=== PATIENT | female | born 1970 | race Caucasian/White ===

== ENCOUNTER 2016-12-22 12:57 | Emergency (ER) | payer BC ==
[2016-12-22] MEDS ORDERED: Aspirin 81 MG Tab.Chew PO ONE (13:17)
[2016-12-22] MEDS ORDERED: Sodium Chloride 0.9% 10 ML Syringe FLUSH PRN (13:17)
[2016-12-22] MEDS ORDERED: Metoprolol Tartrate 5 MG/5 ML SDV IVPUSH ONE (13:18)
[2016-12-22] MEDS ORDERED: Sodium Chloride 0.9% 1,000 ML IV SCH (13:30)
--- NOTE | 2016-12-22 15:12 | EDM.PDOC ---
ED HISTORY OF PRESENT ILLNESS - General Chief Complaint: Respiratory Problem Stated Complaint: CEAST PAIN Time Seen by Provider: 12/22/16 13:05 Source of Information: Reports: Patient History Limitations: Reports: No limitations - History of Present Illness INITIAL COMMENTS - FREE TEXT/NARRATIVE: The patient presents with chest pain that started last night. It is sharp in her chest that radiates to her back. She has some shortness of breath with it. She has a hoarse voice and cough. She has some chills and fever. She has no abdominal pain, nausea or vomiting. Her blood pressure was high when she arrived. it was 220 systolic and then it came down some. She has some swelling to her legs at times. Timing/Duration: Reports: Day(s): (Yesterday) Severity: moderate Location, General: Reports: chest Quality: Reports: Sharp Improves with: Reports: None Worsens with: Reports: None Associated Symptoms (General): Reports: chest pain, cough, fever/chills, shortness of breath. Denies: nausea/vomiting - Related Data Allergies/ADRs: Allergies Allergy/AdvReac Type Severity Reaction Status Date / Time Iodine and Iodide Containing Allergy Anaphylactic Verified 12/22/16 13:20 Produc Shock seafood Allergy Anaphylactic Uncoded 12/22/16 13:20 Shock Home Meds: Home Meds Azithromycin [IJD: Azithromycin] 250 mg PO DAILY #6 tab 12/22/16 [Rx] Codeine/Promethazine [Phenergan with Codeine] 5 - 10 ml PO Q6HR PRN #300 ml 02/04 [Rx] Essential Oils 1 dose PO DAILY 12/22/16 [History] Hydrochlorothiazide 25 mg PO DAILY #30 tablet 12/22/16 [Rx] Past Medical History - Past Health History Medical/Surgical History: Denies Medical/Surgical History Gastrointestinal History: Reports: Chronic constipation Neurological History: Reports: Headaches, chronic Psychiatric History: Reports: Anxiety Social & Family History - Family History Family Medical History: Noncontributory - Tobacco Use Smoking Status *Q: Never Smoker Second Hand Smoke Exposure: No - Caffeine Use Caffeine Use: Reports: Coffee, Other Other Caffeine Use: drinks approximately a pot of coffee a day - Recreational Drug Use Recreational Drug Use: No ED ROS GENERAL - Review of Systems Review Of Systems: See Below Constitutional: Reports: fever, chills HEENT: Reports: Throat pain Respiratory: Reports: shortness of breath, cough Cardiovascular: Reports: Chest pain Endocrine: Reports: no symptoms GI/Abdominal: Reports: No symptoms : Reports: no symptoms Musculoskeletal: Reports: no symptoms Skin: Reports: no symptoms ED EXAM, GENERAL - Physical Exam Exam: See Below Exam Limited By: No limitations General Appearance: alert, no apparent distress Ears: normal external exam Nose: normal inspection Throat/Mouth: Other (Mild to moderate erythema to the oropharynx.) Head: atraumatic, normocephalic Neck: normal inspection Respiratory/Chest: no respiratory distress, lungs clear, normal breath sounds Cardiovascular: regular rate, rhythm, no edema, no murmur GI/Abdominal: soft, non tender, no organomegaly, no mass Back Exam: normal inspection Extremities: normal inspection Neurological: alert, oriented, no motor/sensory deficits Skin Exam: Warm, Diaphoretic EKG INTERPRETATION EKG Date: 12/22/16 Time: 13:06 Rhythm: NSR Rate (beats/min): 92 [place]: normal P-wave: present QRS: normal ST-T: normal QT: normal Course - Vital Signs Last Recorded V/S: Last Vital Signs Temp 97.8 F 12/22/16 13:05 Pulse 84 12/22/16 14:30 Resp 19 12/22/16 14:30 BP 159/99 H 12/22/16 14:30 Pulse Ox 96 12/22/16 14:30 - Orders/Labs/Meds Orders: Active Orders 24 hr Category Date Time Status Cardiac Monitoring [RC] . DIRECTED Care 12/22/16 13:17 Active EKG Documentation Completion [RC] STAT Care 12/22/16 13:17 Active Oxygen Therapy [RC] PRN Care 12/22/16 13:17 Active Peripheral IV Care [RC] . DIRECTED Care 12/22/16 13:17 Active Chest 2V [CR] Stat Exams 12/22/16 13:17 Taken CULTURE STREP A CONFIRMATION [] Stat Lab 12/22/16 13:30 Results STREP SCRN A RAPID W CULT CONF [] Stat Lab 12/22/16 13:30 Results Sodium Chloride 0.9% [Normal Saline] 1,000 ml Med 12/22/16 13:30 Active IV ASDIRECTED Sodium Chloride 0.9% [Saline Flush] Med 03/04/17 13:17 Active 10 ml FLUSH ASDIRECTED PRN Peripheral IV Insertion Adult [OM.PC] Stat Oth 12/22/16 13:17 Ordered Medication Orders Sodium Chloride (Normal Saline) 1,000 mls @ 125 mls/hr IV ASDIRECTED PERICO Last Admin: 12/22/16 13:58 Dose: 125 mls/hr Sodium Chloride (Saline Flush) 10 ml FLUSH ASDIRECTED PRN PRN Reason: Keep Vein Open Last Admin: 12/22/16 13:58 Dose: 10 ml Labs: Laboratory Tests 12/22/16 12/22/16 Range/Units 13:15 13:15 WBC 6.67 (3.98-10.04) K/mm3 RBC 5.05 (3.98-5.22) M/mm3 Hgb 14.9 (11.2-15.7) gm/L Hct 44.5 (34.1-44.9) % MCV 88.1 (79.4-94.8) fl MCH 29.5 (25.6-32.2) pg MCHC 33.5 (32.2-35.5) g/dl RDW Std Deviation 55.1 H (36.4-46.3) fL Plt Count 60 L (182-369) K/mm3 Neut % (Auto) Cancelled Lymph % (Auto) Cancelled [place] % (Auto) Cancelled Eos % (Auto) Cancelled Baso % (Auto) Cancelled Neut # Cancelled Lymph # Cancelled [place] # Cancelled Eos # Cancelled Baso # Cancelled Neutrophils % (Manual) 70 H (40-60) % Band Neutrophils % 0 (0-10) % Lymphocytes % (Manual) 26 (20-40) % Atypical Lymphs % 0 % Monocytes % (Manual) 2 (2-10) % Eosinophils % (Manual) 2 (0.7-5.8) % Basophils % (Manual) 0 L (0.1-1.2) Manual Slide Review Cancelled Platelet Estimate See note RBC Morph Comment Normal Sodium 139 (136-145) mEq/L Potassium 3.9 (3.5-5.1) mEq/L Chloride 105 (98-107) mEq/L Carbon Dioxide 23 (21-32) mEq/L Anion Gap 14.9 (5-15) BUN 5 L (7-18) mg/dL Creatinine 0.8 (0.55-1.02) mg/dL Est Cr Clr Drug Dosing 86.75 mL/min Estimated GFR (MDRD) > 60 (>60) mL/min BUN/Creatinine Ratio 6.3 L (14-18) Glucose 102 (74-106) mg/dL Calcium 8.2 L (8.5-10.1) mg/dL Total Bilirubin 0.4 (0.2-1.0) mg/dL AST 27 (15-37) U/L ALT 62 H (14-59) U/L Alkaline Phosphatase 97 (46-116) U/L Troponin I < 0.017 (0.00-0.056) ng/mL Total Protein 7.0 (6.4-8.2) g/dl Albumin 3.4 (3.4-5.0) g/dl Globulin 3.6 gm/dL Albumin/Globulin Ratio 0.9 L (1-2) Meds: Medications Generic Name Dose Route Start Last Admin Trade Name Freq PRN Reason Stop Dose Admin Sodium Chloride 1,000 mls @ 125 mls/hr 12/22/16 13:30 12/22/16 13:58 Normal Saline IV 125 mls/hr ASDIRECTED PERICO Administration Sodium Chloride 10 ml 12/22/16 13:17 12/22/16 13:58 Saline Flush FLUSH 10 ml ASDIRECTED PRN Administration Keep Vein Open Discontinued Medications Generic Name Dose Route Start Last Admin Trade Name Freq PRN Reason Stop Dose Admin Aspirin 324 mg 12/22/16 13:17 12/22/16 13:57 Aspirin PO 12/22/16 13:18 324 mg ONETIME ONE Administration Metoprolol Tartrate 5 mg 12/22/16 13:18 12/22/16 13:58 Lopressor IVPUSH 12/22/16 13:19 5 mg ONETIME ONE Administration - Re-Assessments/Exams Free Text/Narrative Re-Assessment/Exam: 12/22/16 15:11 I ordered an IV, aspirin and lopressor 5mg IV. Her BP was 206 when I examined her. Her EKG shows a NSR. Her CXR show no infiltrate. Her CBC and CMP look good. Her troponin is negative. I will get her on some HCTZ, zithromax and phenergan with codeine. Departure - Departure Time of Disposition: 15:15 Disposition: Home, Self-Care 01 Condition: good Clinical Impression: Bronchitis Chest pain Qualifiers: Chest pain type: unspecified Qualified Code(s): R07.9 - Chest pain, unspecified Hypertension Qualifiers: Hypertension type: essential hypertension Qualified Code(s): I10 - Essential ( primary) hypertension Prescriptions: Codeine/Promethazine [Phenergan with Codeine] 5 - 10 ml PO Q6HR PRN #300 ml PRN Reason: Cough Azithromycin [IJD: Azithromycin] 250 mg PO DAILY #6 tab Hydrochlorothiazide 25 mg PO DAILY #30 tablet Referrals: Jenifer Bentley [Physician] - 1 Week Forms: ED Department Discharge Additional Instructions: Take the medication as prescribed. Follow up with Dr Bentley within 1 week. Please return if you are worse. - My Orders Last 24 Hours: My Active Orders 12/22/16 13:17 Cardiac Monitoring [RC] . DIRECTED EKG Documentation Completion [RC] STAT Oxygen Therapy [RC] PRN Peripheral IV Care [RC] . DIRECTED Chest 2V [CR] Stat Sodium Chloride 0.9% [Saline Flush] 10 ml FLUSH ASDIRECTED PRN Peripheral IV Insertion Adult [OM.PC] Stat 12/22/16 13:30 CULTURE STREP A CONFIRMATION [RM] Stat STREP SCRN A RAPID W CULT CONF [RM] Stat Sodium Chloride 0.9% [Normal Saline] 1,000 ml IV ASDIRECTED - Assessment/Plan Last 24 Hours: My Active Orders 12/22/16 13:17 Cardiac Monitoring [RC] . DIRECTED EKG Documentation Completion [RC] STAT Oxygen Therapy [RC] PRN Peripheral IV Care [RC] . DIRECTED Chest 2V [CR] Stat Sodium Chloride 0.9% [Saline Flush] 10 ml FLUSH ASDIRECTED PRN Peripheral IV Insertion Adult [OM.PC] Stat 12/22/16 13:30 CULTURE STREP A CONFIRMATION [RM] Stat STREP SCRN A RAPID W CULT CONF [RM] Stat Sodium Chloride 0.9% [Normal Saline] 1,000 ml IV ASDIRECTED
[2016-12-22 18:05] VITALS: BP 154/101
--- NOTE | 2016-12-24 07:37 | CR ---
Chest: Two views of the chest were obtained. Comparison: No previous chest x-ray. Heart size is normal. Mild tortuosity of the thoracic aorta is seen. Lungs are clear. Bony structures are unremarkable for the patient's age. Impression: 1. Nothing acute is identified on two-view chest x-ray. Diagnostic code #1
== END 2016-12-22 15:40 | disposition home or self-care (01) ==
LOC: JD.ED 12:57
DX: J40 Bronchitis, not specified as acute or chronic (principal); R07.9 Chest pain, unspecified; I10 Essential (primary) hypertension; F41.9 Anxiety disorder, unspecified; Z79.2 Long term (current) use of antibiotics; Z79.899 Other long term (current) drug therapy; Z91.013 Allergy to seafood
CPT/HCPCS: 36415; 71020; 80053; 84484; 85025; 87081; 87430; 87804; 93005; 96361; 96374; 99285; A9270; J7040; J7050; 99284; J3490

== ENCOUNTER 2017-12-06 07:26 | Day surgery (SDC) | payer BC ==
[~2017-12-06 07:26] MED LIST: Lactated Ringers 1,000 ML IV SCH; Lidocaine 1%/Sod Bicarbonate in NS 8.4% 1 ML Syringe IDERM PRN; Sodium Chloride 0.9% 10 ML Syringe FLUSH PRN
[2017-12-06] MEDS ORDERED: Propofol 200 MG/20 ML SDV ONE ×2 (08:38→11:26)
[2017-12-06] MEDS ORDERED: Rocuronium 50 MG/5 ML Vial ONE (08:38)
[2017-12-06] MEDS ORDERED: Ondansetron 4 MG/2 ML SDV ONE (08:38)
[2017-12-06] MEDS ORDERED: ceFAZolin 1 GM Vial ONE (08:39)
[2017-12-06] MEDS ORDERED: fentaNYL 250 MCG/5 ML SDV ONE (08:39)
[2017-12-06] MEDS ORDERED: Midazolam 1 MG/ML 2 ML SDV ONE (08:39)
[2017-12-06] MEDS ORDERED: Lidocaine 1% 4 ML ONE (08:39)
--- NOTE | 2017-12-06 08:41 | PCM.PREANE ---
Preanesthetic Assessment - Anesthesia/Transfusion/Family Hx Anesthesia History: Prior Anesthesia Without Reaction Family History of Anesthesia Reaction: No Transfusion History: No Prior Transfusion(s) - Review of Systems General: No Symptoms Pulmonary: Cough Cardiovascular: No Symptoms Gastrointestinal: No Symptoms Neurological: Numbness (in fingers with HTN) Other: Reports: Easy Bleeding, Easy Bruising, Thyroid Problems (thyrodmegaly) - Physical Assessment NPO Status Date: 12/05/17 NPO Status Time: 21:30 Pulse: 67 O2 Sat by Pulse Oximetry: 94 Respiratory Rate: 16 Blood Pressure: 134/73 Temperature: 36.2 C Vital Signs: Last Vital Signs Temp 36.2 C 12/06/17 07:35 Pulse 67 12/06/17 07:35 Resp 16 12/06/17 07:35 BP 134/73 12/06/17 07:35 Pulse Ox 94 L 12/06/17 07:35 Height: 1.69 m Weight: 98.43 kg ASA Class: 2 Mental Status: Alert & Oriented x3 Dentition: Reports: Normal Dentition, [place](s) Thyro-Mental Finger Breadths: 3 Mouth Opening Finger Breadths: 3 ROM/Head Extension: Full Lungs: Clear to Auscultation, Normal Respiratory Effort Cardiovascular: Regular Rate, Regular Rhythm, No Murmurs - Lab Values: Laboratory Last Values WBC 8.28 K/mm3 (3.98-10.04) 12/06/17 07:55 RBC 4.55 M/mm3 (3.98-5.22) 12/06/17 07:55 Hgb 13.1 gm/L (11.2-15.7) 12/06/17 07:55 Hct 40.2 % (34.1-44.9) 12/06/17 07:55 MCV 88.4 fl (79.4-94.8) 12/06/17 07:55 MCH 28.8 pg (25.6-32.2) 12/06/17 07:55 MCHC 32.6 g/dl (32.2-35.5) 12/06/17 07:55 RDW Std Deviation 58.2 fL (36.4-46.3) H 12/06/17 07:55 Plt Count 133 K/mm3 (182-369) L 12/06/17 07:55 Neutrophils % (Manual) 74 % (40-60) H 12/06/17 07:55 Band Neutrophils % 0 % (0-10) 12/06/17 07:55 Lymphocytes % (Manual) 24 % (20-40) 12/06/17 07:55 Atypical Lymphs % 0 % 12/06/17 07:55 Monocytes % (Manual) 1 % (2-10) L 12/06/17 07:55 Eosinophils % (Manual) 1 % (0.7-5.8) 12/06/17 07:55 Basophils % (Manual) 0 (0.1-1.2) L 12/06/17 07:55 Platelet Estimate Adequate 12/06/17 07:55 RBC Morph Comment Normal 12/06/17 07:55 - Allergies Allergies/Adverse Reactions: Allergies Allergy/AdvReac Type Severity Reaction Status Date / Time chlorthalidone Allergy Cannot Verified 12/06/17 08:30 Remember fish derived Allergy Anaphylactic Verified 12/06/17 08:30 Shock grass pollen Allergy Cannot Verified 12/06/17 08:30 Remember Iodine and Iodide Containing Allergy Anaphylactic Verified 12/06/17 08:30 Produc Shock mold Allergy Cannot Verified 12/06/17 08:30 Remember povidone-iodine Allergy Airway Verified 12/06/17 08:30 [From Betadine] Tightness shellfish derived Allergy Anaphylactic Verified 12/06/17 08:30 Shock soap [From Betadine] Allergy Airway Verified 12/06/17 08:30 Tightness dust Allergy Cannot Uncoded 12/06/17 08:30 Remember - Blood Blood Available: Yes Product(s) Available: PRBC - Anesthesia Plan Pre-Op Medication Ordered: Beta Bib Beta Bib: Metoprolol Med Last Dose Date: 12/06/17 Med Last Dose Time: 04:00 - Acknowledgements Anesthesia Type Planned: General Anesthesia Pt an Appropriate Candidate for the Planned Anesthesia: Yes Alternatives and Risks of Anesthesia Discussed w Pt/Guardian: Yes Pt/Guardian Understands and Agrees with Anesthesia Plan: Yes PreAnesthesia Questionnaire - Past Health History Medical/Surgical History: Denies Medical/Surgical History HEENT History: Reports: Allergic Rhinitis Cardiovascular History: Reports: Hypertension Respiratory History: Reports: None Gastrointestinal History: Reports: Chronic Constipation Genitourinary History: Reports: None [employer] History: Reports: , Other (See Below) Other OB/BYN History: abnormal perimenopausal bleeding, irregular menses, menorrhagia, Musculoskeletal History: Reports: None Neurological History: Reports: Headaches, Chronic Psychiatric History: Reports: Anxiety, Other (See Below) Other Psychiatric History: fatigue Endocrine/Metabolic History: Reports: Other (See Below) Other Endocrine/Metabolic History: multiple thyroid nodules, thyromegaly Hematologic History: Reports: Other (See Below) Other Hematologic History: thromobcytopenia, hyperkalemia Immunologic History: Reports: None Oncologic (Cancer) History: Reports: None Dermatologic History: Reports: Other (See Below) Other Dermatologic History: contact dermatitis - Past Surgical History Head Surgeries/Procedures: Reports: None Cardiovascular Surgical History: Reports: None Respiratory Surgical History: Reports: None GI Surgical History: Reports: Colonoscopy Female Surgical History: Reports: None Male Surgical History: Reports: None Endocrine Surgical History: Reports: Thyroid Biopsy Musculoskeletal Surgical History: Reports: None Oncologic Surgical History: Reports: None - SUBSTANCE USE Smoking Status *Q: Former Smoker Tobacco Use Within Last Twelve Months: No Second Hand Smoke Exposure: No Days Per Week of Alcohol Use: 1 Number of Drinks Per Day: 1 Total Drinks Per Week: 1 Recreational Drug Use History: No - HOME MEDS Home Medications: Home Meds Aspirin [Ecotrin] 81 mg PO DAILY 12/05/17 [History] Coconut Oil 1,000 mg PO DAILY 12/05/17 [History] Dandelion Root 1 cap PO DAILY 12/05/17 [History] Fluticasone Propionate [Flonase Allergy Relief] 1 spray NASBOTH DAILY 12/05/17 [ History] Lactobacillus Acidophilus [Probiotic] 1 cap PO DAILY 12/05/17 [History] Losartan [Cozaar] 100 mg PO DAILY 12/05/17 [History] Metoprolol Tartrate [Metoprolol Tartrate] 50 mg PO BID 12/05/17 [History] Multivitamin [Daily Fer] 1 tab PO DAILY 12/05/17 [History] Polyethylene Glycol 3350 [MiraLAX] 1 dose PO DAILY 12/05/17 [History] amLODIPine Besylate [Amlodipine Besylate] 5 mg PO DAILY 12/05/17 [History] - CURRENT (IN HOUSE) MEDS Current Meds: Current Medications Lactated Ringer's (Ringers, Lactated) 1,000 mls @ 125 mls/hr IV ASDIRECTED PERICO Stop: 12/06/17 23:00 Last Admin: 12/06/17 08:00 Dose: 125 mls/hr Lidocaine/Sodium Bicarbonate (Buffered Lidocaine 1% In Ns 8.4%) 0.25 ml IDERM ONETIME PRN PRN Reason: Prior to IV Start Stop: 12/06/17 18:00 Last Admin: 12/06/17 07:59 Dose: 0.25 ml Sodium Chloride (Saline Flush) 10 ml FLUSH ASDIRECTED PRN PRN Reason: Keep Vein Open Stop: 12/06/17 18:00 Discontinued Medications Cefazolin Sodium (Ancef) Confirm Administered Dose 2 gm .ROUTE .STK-MED ONE Stop: 12/06/17 08:40 Fentanyl (Sublimaze) Confirm Administered Dose 250 mcg .ROUTE .STK-MED ONE Stop: 12/06/17 08:40 Lidocaine HCl (Xylocaine-Mpf 1%) Confirm Administered Dose 4 mls @ as directed .ROUTE .STK-MED ONE Stop: 12/06/17 08:40 Midazolam HCl (Versed 1 Mg/Ml) Confirm Administered Dose 2 mg .ROUTE .STK-MED ONE Stop: 12/06/17 08:40 Ondansetron HCl (Zofran) Confirm Administered Dose 4 mg .ROUTE .STK-MED ONE Stop: 12/06/17 08:39 Propofol (Diprivan 20 Ml) Confirm Administered Dose 200 mg .ROUTE .STK-MED ONE Stop: 12/06/17 08:39 Rocuronium [place] (Zemuron) Confirm Administered Dose 50 mg .ROUTE .STK-MED ONE Stop: 12/06/17 08:39
[2017-12-06] MEDS: Bupivacaine 0.5% 30 ML SDV ONE ×2 (09:48→10:17)
[2017-12-06] MEDS ORDERED: ePHEDrine/Normal Saline 25 MG/5 ML Syringe ONE (10:01)
[2017-12-06] MEDS ORDERED: diphenhydrAMINE 50 MG/ML SDV ONE (10:07)
[2017-12-06] MEDS ORDERED: Dexamethasone 4 MG/ML 5 ML MDV ONE (10:07)
[2017-12-06] MEDS: Lidocaine 1% with EPINEPHrine 1:100,000 20 ML MDV ONE ×2 (10:18→10:45)
[2017-12-06] MEDS: Sodium Chloride 0.9% 50 ML SDV ONE ×2 (10:19→10:45)
[2017-12-06] MEDS ORDERED: HYDROmorphone 1 MG/ML Syringe ONE (10:41)
[2017-12-06] MEDS ORDERED: Lactated Ringers 1,000 ML ONE ×2 (11:13)
[2017-12-06] MEDS ORDERED: fentaNYL 100 MCG/2 ML SDV ONE (11:21)
--- NOTE | 2017-12-06 11:41 | PCM.OPNOTE ---
- General Post-Op/Procedure Note Date of Surgery/Procedure: 12/06/17 Operative Procedure(s): Laparoscope assisted vaginal hysterectomy with bilateral salpingo-oophorectomy 617[address] Pre Op Diagnosis: Menorrhagia, irregular menses, abnormal perimenopausal bleeding. Post-Op Diagnosis: Same Anesthesia Technique: General ET Tube Primary Surgeon: Jorge Thurston Secondary Surgeon: Vinicius Pickering Anesthesia Provider: Paul Yancey Reason Order Expediter Was Necessary: Asst. surgery, retraction, help decrease comorbidity and comortality Role of Order Expediter: Asst. surgery, retraction, help decrease comorbidity and comortality Fluid Replacement, Intraop: 3,300 Output, Urine Amount: 310 EBL in mLs: 95 Drain/Tube Comments:: Patient had Acosta catheter in place during surgery removed after surgery. Complications: None Condition: Good Free Text/Narrative:: Patient was transported to operating room #2 and placed under general anesthesia in the low dorsal lithotomy position and prepared and draped in a sterile fashion (no iodine solutions used in the prep.). SCDs in place and functioning prior surgery. Ancef given 2 g intravenously prior surgery. Timeout performed confirming name date of and procedure as laparoscope assisted vaginal hysterectomy bilateral salpingo-oophorectomy. The uterine manipulator was placed Acosta catheter was placed. The infraumbilical incision was made after injecting 2 mL of 0.5% Marcaine at the umbilicus and superior edge of the symphysis pubis in the lower uterine segment. The varies needle was introduced and pneumoperitoneum was obtained the 5 mm trocar was then introduced and prompt visualization of pelvic organs in the intra-abdominal cavity obtained. The suprapubic trocar was placed to allow manipulation utilizing manipulation the cul-de-sac posterior was free the tubes and ovaries were freed there were no adhesions and it decision was made to proceed with the flap scope assisted vaginal hysterectomy and removal of both tubes and ovaries. The 5 mm trochars were also placed left and right lower quadrant transilluminated and the abdomen to avoid vessels impingement or laceration. Utilizing the Enseal the right tube and ovary were grasped crossclamped at the infundibulopelvic ligament and proceeding caudad crossclamping activating and incising the Enseal until the triple pedicle area was reached round ligament was crossclamped Enseal activated and incised and proceeding caudad crossclamping activating incising until the area of the bladder flap lower uterine segment was obtained. Same procedure was carried out on the left side. Meeting in the midline with the bladder flap incision. Proceeding vaginally injecting 20 mL of 0.25% lidocaine with epinephrine and posterior colpotomy was obtained crossclamping the uterosacral and cardinal ligaments activating and incising the LigaSure circumscribing the remainder of the cervix anteriorly the entry into the anterior cul-de-sac was obtained without difficulty. Crossclamping the uterine vasculature on the left side activating and incising and same procedure on the right side the uterus was removed there was some bleeding from the left and right uterine arteries these were crossclamped suture ligated after reactivating the LigaSure to confirm hemostasis. Sponge needle pack asthma sharp count correct 2 and the posterior cul-de-sac was closed running locking suture of 0 Monocryl the anterior cuff was approximated to the posterior cuff was 0 Monocryl. The pneumoperitoneum was reobtained and inspection of the operative site showed no bleeding pneumoperitoneum was reduced and all 45 mm trocar incisions were closed with subcuticular 3-0 Monocryl and Dermabond applied. No blood transfusions required patient transported postanesthesia care unit in satisfactory condition. I talked with patient's and all questions answered to his voiced satisfaction.
[2017-12-06] MEDS ORDERED: Ketorolac 30 MG/ML SDV IVPUSH PRN (11:51)
[2017-12-06] MEDS ORDERED: fentaNYL 100 MCG/2 ML SDV IVPUSH PRN (11:51)
--- NOTE | 2017-12-06 11:55 | PCM.POSTAN ---
POST ANESTHESIA ASSESSMENT - MENTAL STATUS Mental Status: Alert, Oriented - VITAL SIGNS Pulse Rate: 74 SaO2: 95 Resp Rate: 10 Blood Pressure: 104/66 Temperature: 36.2 C - RESPIRATORY Respiratory Status: Respiratory Rate WNL, Airway Patent, O2 Saturation Stable, Supplemental Oxygen - CARDIOVASCULAR CV Status: Pulse Rate WNL, Blood Pressure Stable - GASTROINTESTINAL GI Status: No Symptoms - PAIN Pain Score: 0 - POST OP HYDRATION Hydration Status: Adequate & Stable - OBSERVATIONS Free Text/Narrative:: no anesthesia complications noted
[2017-12-06] MEDS ORDERED: HYDROmorphone 0.5 MG/0.5 ML Syringe IVPUSH ONE (12:30)
[2017-12-06] MEDS ORDERED: Albuterol 0.083% 2.5 MG/3 ML Neb Soln ONE (13:00)
[2017-12-06] MEDS ORDERED: Racepinephrine 2.25% 0.5 ML Neb Soln NEB ONE (13:01)
--- NOTE | 2017-12-06 13:53 | PCM48HPAN ---
Post Anesthesia Note - EVALUATION WITHIN 48HRS OF ANESTHETIC Vital Signs in Normal Range: Yes Patient Participated in Evaluation: Yes Respiratory Function Stable: Yes Airway Patent: Yes Cardiovascular Function Stable: Yes Hydration Status Stable: Yes Pain Control Satisfactory: Yes Nausea and Vomiting Control Satisfactory: Yes Mental Status Recovered: Yes - COMMENTS/OBSERVATIONS Free Text/Narrative:: Patient requiring O2 therapy to maintain adequate oxygen saturation levels. Patient is comfortable with no complaints of. Plan to continue to monitor and wean off of oxygen.
[2017-12-06] MEDS ORDERED: Albuterol 0.083% 2.5 MG/3 ML Neb Soln NEB ONE (14:20)
[2017-12-06] MEDS ORDERED: Acetaminophen/oxyCODONE 325-5 MG Tab PO PRN ×2 (15:10→15:20)
[2017-12-06] MEDS ORDERED: Lactated Ringers 1,000 ML IV SCH (15:15)
[2017-12-06] MEDS ORDERED: Ondansetron 4 MG/2 ML SDV IVPUSH PRN (15:16)
[2017-12-06 15:29] VITALS: BP 114/84
--- NOTE | 2017-12-06 16:32 | PCM.CONSN ---
- General Info Date of Service: 12/06/17 Admission Dx/Problem (Free Text): Mary patient is a 47 year old female post op day 0 after a hysterectomy with BSO ; the hospitalist service has been consulted for hypoxia. Hypoxia post op after general anesthesia with minimal narcotics (fentanyl, dilaudid). The patient has not been weaned off of oxygen required to maintain O2 saturation. Doubt decrease respiratory drive, speaks in complete sentences. The patient is a former smoker who has a remote history of bronchitis. She has daily second hand smoke exposure. She denies fever, chills, shortness of breath, orthopnea, PND, syncopal/presyncopal episode. Functional Status: Reports: Ambulating, Urinating - Review of Systems General: Reports: No Symptoms HEENT: Reports: No Symptoms Pulmonary: Reports: No Symptoms Cardiovascular: Reports: No Symptoms Gastrointestinal: Reports: No Symptoms Genitourinary: Reports: No Symptoms Musculoskeletal: Reports: No Symptoms Skin: Reports: No Symptoms Neurological: Reports: No Symptoms Psychiatric: Reports: No Symptoms - Patient Data Vitals - Most Recent: Last Vital Signs Temp 36.3 C 12/06/17 15:25 Pulse 79 12/06/17 15:25 Resp 22 H 12/06/17 15:25 BP 114/84 12/06/17 15:25 Pulse Ox 94 L 12/06/17 15:25 Weight - Most Recent: 98.43 kg I&O - Last 24 Hours: Intake & Output 12/06/17 12/06/17 12/06/17 06:59 14:59 22:59 Intake Total 4000 600 Output Total 620 Balance 3380 600 Lab Results Last 24 Hours: Laboratory Results - last 24 hr 12/06/17 12/06/17 12/06/17 Range/Units 07:55 07:55 07:55 WBC 8.28 (3.98-10.04) K/mm3 RBC 4.55 (3.98-5.22) M/mm3 Hgb 13.1 (11.2-15.7) gm/L Hct 40.2 (34.1-44.9) % MCV 88.4 (79.4-94.8) fl MCH 28.8 (25.6-32.2) pg MCHC 32.6 (32.2-35.5) g/dl RDW Std Deviation 58.2 H (36.4-46.3) fL Plt Count 133 L (182-369) K/mm3 Neutrophils % (Manual) 74 H (40-60) % Band Neutrophils % 0 (0-10) % Lymphocytes % (Manual) 24 (20-40) % Atypical Lymphs % 0 % Monocytes % (Manual) 1 L (2-10) % Eosinophils % (Manual) 1 (0.7-5.8) % Basophils % (Manual) 0 L (0.1-1.2) Platelet Estimate Adequate RBC Morph Comment Normal Sodium 138 (136-145) mEq/L Potassium 3.9 (3.5-5.1) mEq/L Chloride 106 (98-107) mEq/L Carbon Dioxide 22 (21-32) mEq/L Anion Gap 13.9 (5-15) HCG, Qual (NEGATIVE) Blood Type B POSITIVE Gel Antibody Screen Negative 12/06/17 Range/Units 07:55 WBC (3.98-10.04) K/mm3 RBC (3.98-5.22) M/mm3 Hgb (11.2-15.7) gm/L Hct (34.1-44.9) % MCV (79.4-94.8) fl MCH (25.6-32.2) pg MCHC (32.2-35.5) g/dl RDW Std Deviation (36.4-46.3) fL Plt Count (182-369) K/mm3 Neutrophils % (Manual) (40-60) % Band Neutrophils % (0-10) % Lymphocytes % (Manual) (20-40) % Atypical Lymphs % % Monocytes % (Manual) (2-10) % Eosinophils % (Manual) (0.7-5.8) % Basophils % (Manual) (0.1-1.2) Platelet Estimate RBC Morph Comment Sodium (136-145) mEq/L Potassium (3.5-5.1) mEq/L Chloride (98-107) mEq/L Carbon Dioxide (21-32) mEq/L Anion Gap (5-15) HCG, Qual Negative (NEGATIVE) Blood Type Gel Antibody Screen Med Orders - Current: Current Medications Lactated Ringer's (Ringers, Lactated) 1,000 mls @ 125 mls/hr IV ASDIRECTED PERICO Stop: 12/06/17 23:00 Last Admin: 12/06/17 08:00 Dose: 125 mls/hr Lactated Ringer's (Ringers, Lactated) 1,000 mls @ 75 mls/hr IV ASDIRECTED PERICO Lidocaine/Sodium Bicarbonate (Buffered Lidocaine 1% In Ns 8.4%) 0.25 ml IDERM ONETIME PRN PRN Reason: Prior to IV Start Stop: 12/06/17 18:00 Last Admin: 12/06/17 07:59 Dose: 0.25 ml Ondansetron HCl (Zofran) 4 mg IVPUSH Q6H PRN PRN Reason: Nausea/Vomiting Oxycodone/Acetaminophen (Percocet 325-5 Mg) 1 - 2 tab PO Q6H PRN PRN Reason: Breakthrough Pain Sodium Chloride (Saline Flush) 10 ml FLUSH ASDIRECTED PRN PRN Reason: Keep Vein Open Stop: 12/06/17 18:00 Discontinued Medications Albuterol (Proventil Neb Soln) Confirm Administered Dose 2.5 mg .ROUTE .STK-MED ONE Stop: 12/06/17 13:01 Last Admin: 12/06/17 13:12 Dose: 2.5 mg Albuterol (Proventil Neb Soln) 2.5 mg NEB ONETIME ONE Stop: 12/06/17 14:21 Last Admin: 12/06/17 14:26 Dose: Not Given Bupivacaine HCl (Marcaine 0.5%) Confirm Administered Dose 30 ml .ROUTE .STK-MED ONE Stop: 12/06/17 08:24 Last Admin: 12/06/17 09:48 Dose: 15 ml Cefazolin Sodium (Ancef) Confirm Administered Dose 2 gm .ROUTE .STK-MED ONE Stop: 12/06/17 08:40 Dexamethasone (Dexamethasone) Confirm Administered Dose 20 mg .ROUTE .STK-MED ONE Stop: 12/06/17 10:08 Diphenhydramine HCl (Benadryl) Confirm Administered Dose 50 mg .ROUTE .STK-MED ONE Stop: 12/06/17 10:08 Ephedrine Sulfate (Ephedrine In Ns) Confirm Administered Dose 25 mg .ROUTE .STK- MED ONE Stop: 12/06/17 10:02 Fentanyl (Sublimaze) Confirm Administered Dose 250 mcg .ROUTE .STK-MED ONE Stop: 12/06/17 08:40 Fentanyl (Sublimaze) Confirm Administered Dose 100 mcg .ROUTE .STK-MED ONE Stop: 12/06/17 11:22 Fentanyl (Sublimaze) 50 mcg IVPUSH Q5M PRN PRN Reason: PAIN Stop: 12/06/17 14:30 Last Admin: 12/06/17 12:36 Dose: 50 mcg Hydromorphone HCl (Dilaudid) Confirm Administered Dose 1 mg .ROUTE .STK-MED ONE Stop: 12/06/17 10:42 Hydromorphone HCl (Dilaudid) 1 mg IVPUSH ONETIME ONE Stop: 12/06/17 12:31 Lidocaine HCl (Xylocaine-Mpf 1%) Confirm Administered Dose 4 mls @ as directed .ROUTE .STK-MED ONE Stop: 12/06/17 08:40 Lactated Ringer's (Ringers, Lactated) Confirm Administered Dose 1,000 mls @ as directed .ROUTE .STK-MED ONE Stop: 12/06/17 11:14 Lactated Ringer's (Ringers, Lactated) Confirm Administered Dose 1,000 mls @ as directed .ROUTE .STK-MED ONE Stop: 12/06/17 11:14 Ketorolac Tromethamine (Toradol) 30 mg IVPUSH ONETIME PRN PRN Reason: Pain Stop: 12/06/17 14:30 Last Admin: 12/06/17 12:05 Dose: 30 mg Lidocaine/Epinephrine (Xylocaine 1% With Epinephrine 1:100,000) Confirm Administered Dose 20 ml .ROUTE .STK-MED ONE Stop: 12/06/17 08:24 Last Admin: 12/06/17 10:45 Dose: 5 ml Midazolam HCl (Versed 1 Mg/Ml) Confirm Administered Dose 2 mg .ROUTE .STK-MED ONE Stop: 12/06/17 08:40 Ondansetron HCl (Zofran) Confirm Administered Dose 4 mg .ROUTE .STK-MED ONE Stop: 12/06/17 08:39 Oxycodone/Acetaminophen (Percocet 325-5 Mg) 1 tab PO Q6H PRN PRN Reason: Breakthrough Pain Propofol (Diprivan 20 Ml) Confirm Administered Dose 200 mg .ROUTE .STK-MED ONE Stop: 12/06/17 08:39 Propofol (Diprivan 20 Ml) Confirm Administered Dose 200 mg .ROUTE .STK-MED ONE Stop: 12/06/17 11:27 Rocuronium Mercedes (Zemuron) Confirm Administered Dose 50 mg .ROUTE .STK-MED ONE Stop: 12/06/17 08:39 Sodium Chloride (Normal Saline) Confirm Administered Dose 50 ml .ROUTE .STK-MED ONE Stop: 12/06/17 08:24 Last Admin: 12/06/17 10:45 Dose: 15 ml - Exam Quality Assessment: Supplemental Oxygen, DVT Prophylaxis General: Alert, Oriented, Cooperative, No Acute Distress HEENT: Pupils Equal, Pupils Reactive, EOMI Neck: Supple, Trachea Midline Lungs: Clear to Auscultation, Normal Respiratory Effort Cardiovascular: Regular Rate, Regular Rhythm GI/Abdominal Exam: Normal Bowel Sounds, Soft, Non-Tender, No Organomegaly, No Distention (Female) Exam: Deferred Back Exam: Normal Inspection Extremities: Normal Inspection Skin: Warm Neurological: No New Focal Deficit Psy/Mental Status: Alert, Normal Affect, Normal Mood Consult PN Assessment/Plan POD#: 0 Procedures: Procedures ASSAY OF MAGNESIUM (10/22/17) ASSAY OF TROPONIN QUANT (12/22/16) ASSAY THYROID STIM HORMONE (10/07/17) BIOPSY OF THYROID (11/21/17) CHEST X-RAY 2VW FRONTAL&LATL (12/22/16) COMPLETE CBC W/AUTO DIFF WBC (11/04/17) COMPREHEN METABOLIC PANEL (11/04/17) CULTURE SCREEN ONLY (12/22/16) ECHO GUIDE FOR BIOPSY (11/21/17) ELECTROCARDIOGRAM TRACING (12/22/16) EMERGENCY DEPT VISIT (12/22/16) HYDRATE IV INFUSION ADD-ON (12/22/16) INFLUENZA ASSAY W/OPTIC (12/22/16) LIPID PANEL (10/09/17) METABOLIC PANEL TOTAL CA (11/14/17) ROUTINE VENIPUNCTURE (11/14/17) STREP A AG IA (12/22/16) THER/PROPH/DIAG INJ IV PUSH (12/22/16) TRANSVAGINAL US NON-OB (10/11/17) US EXAM OF HEAD AND NECK (10/11/17) (1) Hypertension SNOMED Code(s): 04810679 Code(s): I10 - ESSENTIAL (PRIMARY) HYPERTENSION Current Visit: No Qualifiers: Hypertension type: essential hypertension Qualified Code(s): I10 - Essential (primary) hypertension Problem List Initiated/Reviewed/Updated: Yes Plan: Impression: Post op day 0, Laproscope Vaginal hysterectomy with BSO History of menorrhagia History of tobacco, stopped 3 years ago Exposure to second hand smoke; currently is hypoxic requiring oxygen Chronic HTN Thyroid nodules History of thrombocyctopenia Plan: Supportive care Titrate off O2 as tolerated IS q 1-2 hours DVT/GI prophylaxis
--- NOTE | 2017-12-11 08:23 | PCM.DCSUM1 ---
Discharge Summary - Hospital Course Free Text/Narrative:: [facility] Post-Op/Procedure Note Patient Name: TAD CORNELL Date of : 66 Patient Status: Observation Attending Provider: Jorge Thurston Date: 12/06/17 11:33 Initialization Date: 12/06/17 11:33 - General Post-Op/Procedure Note Date of Surgery/Procedure: 12/06/17 Operative Procedure(s): Laparoscope assisted vaginal hysterectomy with bilateral salpingo-oophorectomy 64089 Pre Op Diagnosis: Menorrhagia, irregular menses, abnormal perimenopausal bleeding. Post-Op Diagnosis: Same Anesthesia Technique: General ET Tube Primary Surgeon: Jorge Thurston Secondary Surgeon: Vinicius Pickering Anesthesia Provider: Paul Yancey Reason Brine Room Laborer Was Necessary: Asst. surgery, retraction, help decrease comorbidity and comortality Role of Brine Room Laborer: Asst. surgery, retraction, help decrease comorbidity and comortality Fluid Replacement, Intraop: 3,300 Output, Urine Amount: 310 EBL in mLs: 95 Drain/Tube Comments:: Patient had Acosta catheter in place during surgery removed after surgery. Complications: None Condition: Good Free Text/Narrative:: Patient was transported to operating room #2 and placed under general anesthesia in the low dorsal lithotomy position and prepared and draped in a sterile fashion (no iodine solutions used in the prep.). SCDs in place and functioning prior surgery. Ancef given 2 g intravenously prior surgery. Timeout performed confirming name date of and procedure as laparoscope assisted vaginal hysterectomy bilateral salpingo-oophorectomy. The uterine manipulator was placed Acosta catheter was placed. The infraumbilical incision was made after injecting 2 mL of 0.5% Marcaine at the umbilicus and superior edge of the symphysis pubis in the lower uterine segment. The varies needle was introduced and pneumoperitoneum was obtained the 5 mm trocar was then introduced and prompt visualization of pelvic organs in the intra-abdominal cavity obtained. The suprapubic trocar was placed to allow manipulation utilizing manipulation the cul-de-sac posterior was free the tubes and ovaries were freed there were no adhesions and it decision was made to proceed with the flap scope assisted vaginal hysterectomy and removal of both tubes and ovaries. The 5 mm trochars were also placed left and right lower quadrant transilluminated and the abdomen to avoid vessels impingement or laceration. Utilizing the Enseal the right tube and ovary were grasped crossclamped at the infundibulopelvic ligament and proceeding caudad crossclamping activating and incising the Enseal until the triple pedicle area was reached round ligament was crossclamped Enseal activated and incised and proceeding caudad crossclamping activating incising until the area of the bladder flap lower uterine segment was obtained. Same procedure was carried out on the left side. Meeting in the midline with the bladder flap incision. Proceeding vaginally injecting 20 mL of 0.25% lidocaine with epinephrine and posterior colpotomy was obtained crossclamping the uterosacral and cardinal ligaments activating and incising the LigaSure circumscribing the remainder of the cervix anteriorly the entry into the anterior cul-de-sac was obtained without difficulty. Crossclamping the uterine vasculature on the left side activating and incising and same procedure on the right side the uterus was removed there was some bleeding from the left and right uterine arteries these were crossclamped suture ligated after reactivating the LigaSure to confirm hemostasis. Sponge needle pack asthma sharp count correct 2 and the posterior cul-de-sac was closed running locking suture of 0 Monocryl the anterior cuff was approximated to the posterior cuff was 0 Monocryl. The pneumoperitoneum was reobtained and inspection of the operative site showed no bleeding pneumoperitoneum was reduced and all 45 mm trocar incisions were closed with subcuticular 3-0 Monocryl and Dermabond applied. No blood transfusions required patient transported postanesthesia care unit in satisfactory condition. I talked with patient's and all questions answered to his voiced satisfaction. HPI Initial Comments: [facility] Post-Op/Procedure Note Patient Name: TAD CORNELL Date of : 66 Patient Status: Observation Attending Provider: Jorge Thurston Date: 12/06/17 11:33 Initialization Date: 12/06/17 11:33 - General Post-Op/Procedure Note Date of Surgery/Procedure: 12/06/17 Operative Procedure(s): Laparoscope assisted vaginal hysterectomy with bilateral salpingo-oophorectomy 57739 Pre Op Diagnosis: Menorrhagia, irregular menses, abnormal perimenopausal bleeding. Post-Op Diagnosis: Same Anesthesia Technique: General ET Tube Primary Surgeon: Jorge Thurston Secondary Surgeon: Vinicius Pickering Anesthesia Provider: Paul Yancey Reason Brine Room Laborer Was Necessary: Asst. surgery, retraction, help decrease comorbidity and comortality Role of Brine Room Laborer: Asst. surgery, retraction, help decrease comorbidity and comortality Fluid Replacement, Intraop: 3,300 Output, Urine Amount: 310 EBL in mLs: 95 Drain/Tube Comments:: Patient had Acosta catheter in place during surgery removed after surgery. Complications: None Condition: Good Free Text/Narrative:: Patient was transported to operating room #2 and placed under general anesthesia in the low dorsal lithotomy position and prepared and draped in a sterile fashion (no iodine solutions used in the prep.). SCDs in place and functioning prior surgery. Ancef given 2 g intravenously prior surgery. Timeout performed confirming name date of and procedure as laparoscope assisted vaginal hysterectomy bilateral salpingo-oophorectomy. The uterine manipulator was placed Acosta catheter was placed. The infraumbilical incision was made after injecting 2 mL of 0.5% Marcaine at the umbilicus and superior edge of the symphysis pubis in the lower uterine segment. The varies needle was introduced and pneumoperitoneum was obtained the 5 mm trocar was then introduced and prompt visualization of pelvic organs in the intra-abdominal cavity obtained. The suprapubic trocar was placed to allow manipulation utilizing manipulation the cul-de-sac posterior was free the tubes and ovaries were freed there were no adhesions and it decision was made to proceed with the flap scope assisted vaginal hysterectomy and removal of both tubes and ovaries. The 5 mm trochars were also placed left and right lower quadrant transilluminated and the abdomen to avoid vessels impingement or laceration. Utilizing the Enseal the right tube and ovary were grasped crossclamped at the infundibulopelvic ligament and proceeding caudad crossclamping activating and incising the Enseal until the triple pedicle area was reached round ligament was crossclamped Enseal activated and incised and proceeding caudad crossclamping activating incising until the area of the bladder flap lower uterine segment was obtained. Same procedure was carried out on the left side. Meeting in the midline with the bladder flap incision. Proceeding vaginally injecting 20 mL of 0.25% lidocaine with epinephrine and posterior colpotomy was obtained crossclamping the uterosacral and cardinal ligaments activating and incising the LigaSure circumscribing the remainder of the cervix anteriorly the entry into the anterior cul-de-sac was obtained without difficulty. Crossclamping the uterine vasculature on the left side activating and incising and same procedure on the right side the uterus was removed there was some bleeding from the left and right uterine arteries these were crossclamped suture ligated after reactivating the LigaSure to confirm hemostasis. Sponge needle pack asthma sharp count correct 2 and the posterior cul-de-sac was closed running locking suture of 0 Monocryl the anterior cuff was approximated to the posterior cuff was 0 Monocryl. The pneumoperitoneum was reobtained and inspection of the operative site showed no bleeding pneumoperitoneum was reduced and all 45 mm trocar incisions were closed with subcuticular 3-0 Monocryl and Dermabond applied. No blood transfusions required patient transported postanesthesia care unit in satisfactory condition. I talked with patient's and all questions answered to his voiced satisfaction. Brief History: [facility] . Post-Op/Procedure Note. Patient Name: TAD CORNELL Record Number: [id number]. Date of : Patient Status: Observation. Attending Provider: Jorge Thurston Number: [id number]. Date: 12/06/17 11:33Initialization Date: 12/06/17 11:33. - General Post-Op/Procedure Note. Date of Surgery/Procedure: 12/06/17. Operative Procedure(s): Laparoscope assisted vaginal hysterectomy with bilateral salpingo-oophorectomy 70778. Pre Op Diagnosis: Menorrhagia, irregular menses, abnormal perimenopausal bleeding. Post-Op Diagnosis: Same. Anesthesia Technique: General ET Tube. Primary Surgeon: Jorge Thurston. Secondary Surgeon: Vinicius Pickering. Anesthesia Provider: Paul Yancye. Reason Brine Room Laborer Was Necessary: Asst. surgery, retraction, help decrease comorbidity and comortality. Role of Brine Room Laborer: Asst. surgery, retraction, help decrease comorbidity and comortality. Fluid Replacement, Intraop: 3,300. Output, Urine Amount: 310. EBL in mLs: 95. Drain/Tube Comments:: Patient had Acosta catheter in place during surgery removed after surgery. Complications: None. Condition : Good. Free Text/Narrative:: Patient was transported to operating room #2 and placed under general anesthesia in the low dorsal lithotomy position and prepared and draped in a sterile fashion (no iodine solutions used in the prep.) . SCDs in place and functioning prior surgery. Ancef given 2 g intravenously prior surgery. Timeout performed confirming name date of and procedure as laparoscope assisted vaginal hysterectomy bilateral salpingo-oophorectomy. The uterine manipulator was placed Acosta catheter was placed. The infraumbilical incision was made after injecting 2 mL of 0.5% Marcaine at the umbilicus and superior edge of the symphysis pubis in the lower uterine segment. The varies needle was introduced and pneumoperitoneum was obtained the 5 mm trocar was then introduced and prompt visualization of pelvic organs in the intra- abdominal cavity obtained. The suprapubic trocar was placed to allow manipulation utilizing manipulation the cul-de-sac posterior was free the tubes and ovaries were freed there were no adhesions and it decision was made to proceed with the flap scope assisted vaginal hysterectomy and removal of both tubes and ovaries. The 5 mm trochars were also placed left and right lower quadrant transilluminated and the abdomen to avoid vessels impingement or laceration. Utilizing the Enseal the right tube and ovary were grasped crossclamped at the infundibulopelvic ligament and proceeding caudad crossclamping activating and incising the Enseal until the triple pedicle area was reached round ligament was crossclamped Enseal activated and incised and proceeding caudad crossclamping activating incising until the area of the bladder flap lower uterine segment was obtained. Same procedure was carried out on the left side. Meeting in the midline with the bladder flap incision. Proceeding vaginally injecting 20 mL of 0.25% lidocaine with epinephrine and posterior colpotomy was obtained crossclamping the uterosacral and cardinal ligaments activating and incising the LigaSure circumscribing the remainder of the cervix anteriorly the entry into the anterior cul-de-sac was obtained without difficulty. Crossclamping the uterine vasculature on the left side activating and incising and same procedure on the right side the uterus was removed there was some bleeding from the left and right uterine arteries these were crossclamped suture ligated after reactivating the LigaSure to confirm hemostasis. Sponge needle pack asthma sharp count correct 2 and the posterior cul-de-sac was closed running locking suture of 0 Monocryl the anterior cuff was approximated to the posterior cuff was 0 Monocryl. The pneumoperitoneum was reobtained and inspection of the operative site showed no bleeding pneumoperitoneum was reduced and all 45 mm trocar incisions were closed with subcuticular 3-0 Monocryl and Dermabond applied. No blood transfusions required patient transported postanesthesia care unit in satisfactory condition. I talked with patient's and all questions answered to his voiced satisfaction. - Discharge Data Discharge Date: 12/06/17 Discharge Disposition: Home, Self-Care 01 Condition: Good - Discharge Diagnosis/Problem(s) (1) Excessive and frequent menstruation SNOMED Code(s): 346394574 ICD Code: N92.0 - EXCESSIVE AND FREQUENT MENSTRUATION WITH REGULAR CYCLE Status: Acute (2) Irregular menstruation SNOMED Code(s): 32205274 ICD Code: N92.6 - IRREGULAR MENSTRUATION, UNSPECIFIED Status: Acute (3) Excessive bleeding in premenopausal period Status: Acute - Patient Summary/Data Operative Procedure(s) Performed: Laparoscope assisted vaginal hysterectomy with bilateral salpingo-oophorectomy 99679 Complications: None Consults: Consultations 12/06/17 13:45 Consult to Physician [CONS] Urgent Hospital Course: Uneventful - Patient Instructions Diet: Regular Diet as Tolerated Driving: Do Not Drive Showering/Bathing: May Shower (2 weeks), No Tub Bathing/Swimming (6 weeks) Notify Provider of: Fever, Increased Pain, Swelling and Redness, Drainage, Nausea and/or Vomiting - Discharge Plan Prescriptions/Med Rec: Ibuprofen [Motrin] 600 mg PO Q6H PRN #50 tab PRN Reason: Pain oxyCODONE HCl/Acetaminophen [Percocet 5-325 mg Tablet] 1 each PO Q6H #25 tablet Home Medications: Home Meds Aspirin [Ecotrin] 81 mg PO DAILY 12/05/17 [History] Coconut Oil 1,000 mg PO DAILY 12/05/17 [History] Dandelion Root 1 cap PO DAILY 12/05/17 [History] Fluticasone Propionate [Flonase Allergy Relief] 1 spray NASBOTH DAILY 12/05/17 [ History] Lactobacillus Acidophilus [Probiotic] 1 cap PO DAILY 12/05/17 [History] Losartan [Cozaar] 100 mg PO DAILY 12/05/17 [History] Metoprolol Tartrate 50 mg PO BID 12/05/17 [History] Multivitamin [Daily Fer] 1 tab PO DAILY 12/05/17 [History] Polyethylene Glycol 3350 [MiraLAX] 1 dose PO DAILY 12/05/17 [History] amLODIPine Besylate [Amlodipine Besylate] 5 mg PO DAILY 12/05/17 [History] Ibuprofen [Motrin] 600 mg PO Q6H PRN #50 tab 12/06/17 [Rx] oxyCODONE HCl/Acetaminophen [Percocet 5-325 mg Tablet] 1 each PO Q6H #25 tablet 12/06/17 [Rx] Referrals: Jorge Thurston MD [Physician] - (12/17/2017) - Discharge Summary/Plan Comment DC Time >30 min.: No - Patient Data Vitals - Most Recent: Last Vital Signs Temp 97.3 F 12/06/17 15:25 Pulse 79 12/06/17 15:25 Resp 22 H 12/06/17 15:25 BP 114/84 12/06/17 15:25 Pulse Ox 94 L 12/06/17 15:25 Weight - Most Recent: 217 lb Med Orders - Current: Current Medications Discontinued Medications Albuterol (Proventil Neb Soln) Confirm Administered Dose 2.5 mg .ROUTE .STK-MED ONE Stop: 12/06/17 13:01 Last Admin: 12/06/17 13:12 Dose: 2.5 mg Albuterol (Proventil Neb Soln) 2.5 mg NEB ONETIME ONE Stop: 12/06/17 14:21 Last Admin: 12/06/17 14:26 Dose: Not Given Bupivacaine HCl (Marcaine 0.5%) Confirm Administered Dose 30 ml .ROUTE .STK-MED ONE Stop: 12/06/17 08:24 Last Admin: 12/06/17 09:48 Dose: 15 ml Cefazolin Sodium (Ancef) Confirm Administered Dose 2 gm .ROUTE .STK-MED ONE Stop: 12/06/17 08:40 Dexamethasone (Dexamethasone) Confirm Administered Dose 20 mg .ROUTE .STK-MED ONE Stop: 12/06/17 10:08 Diphenhydramine HCl (Benadryl) Confirm Administered Dose 50 mg .ROUTE .STK-MED ONE Stop: 12/06/17 10:08 Ephedrine Sulfate (Ephedrine In Ns) Confirm Administered Dose 25 mg .ROUTE .STK- MED ONE Stop: 12/06/17 10:02 Fentanyl (Sublimaze) Confirm Administered Dose 250 mcg .ROUTE .STK-MED ONE Stop: 12/06/17 08:40 Fentanyl (Sublimaze) Confirm Administered Dose 100 mcg .ROUTE .STK-MED ONE Stop: 12/06/17 11:22 Fentanyl (Sublimaze) 50 mcg IVPUSH Q5M PRN PRN Reason: PAIN Stop: 12/06/17 14:30 Last Admin: 12/06/17 12:36 Dose: 50 mcg Hydromorphone HCl (Dilaudid) Confirm Administered Dose 1 mg .ROUTE .STK-MED ONE Stop: 12/06/17 10:42 Hydromorphone HCl (Dilaudid) 1 mg IVPUSH ONETIME ONE Stop: 12/06/17 12:31 Lactated Ringer's (Ringers, Lactated) 1,000 mls @ 125 mls/hr IV ASDIRECTED PERICO Stop: 12/06/17 23:00 Last Admin: 12/06/17 08:00 Dose: 125 mls/hr Lidocaine HCl (Xylocaine-Mpf 1%) Confirm Administered Dose 4 mls @ as directed .ROUTE .STK-MED ONE Stop: 12/06/17 08:40 Lactated Ringer's (Ringers, Lactated) Confirm Administered Dose 1,000 mls @ as directed .ROUTE .STK-MED ONE Stop: 12/06/17 11:14 Lactated Ringer's (Ringers, Lactated) Confirm Administered Dose 1,000 mls @ as directed .ROUTE .STK-MED ONE Stop: 12/06/17 11:14 Lactated Ringer's (Ringers, Lactated) 1,000 mls @ 75 mls/hr IV ASDIRECTED [facility] Ketorolac Tromethamine (Toradol) 30 mg IVPUSH ONETIME PRN PRN Reason: Pain Stop: 12/06/17 14:30 Last Admin: 12/06/17 12:05 Dose: 30 mg Lidocaine/Epinephrine (Xylocaine 1% With Epinephrine 1:100,000) Confirm Administered Dose 20 ml .ROUTE .STK-MED ONE Stop: 12/06/17 08:24 Last Admin: 12/06/17 10:45 Dose: 5 ml Lidocaine/Sodium Bicarbonate (Buffered Lidocaine 1% In Ns 8.4%) 0.25 ml IDERM ONETIME PRN PRN Reason: Prior to IV Start Stop: 12/06/17 18:00 Last Admin: 12/06/17 07:59 Dose: 0.25 ml Midazolam HCl (Versed 1 Mg/Ml) Confirm Administered Dose 2 mg .ROUTE .STK-MED ONE Stop: 12/06/17 08:40 Ondansetron HCl (Zofran) Confirm Administered Dose 4 mg .ROUTE .STK-MED ONE Stop: 12/06/17 08:39 Ondansetron HCl (Zofran) 4 mg IVPUSH Q6H PRN PRN Reason: Nausea/Vomiting Oxycodone/Acetaminophen (Percocet 325-5 Mg) 1 tab PO Q6H PRN PRN Reason: Breakthrough Pain Oxycodone/Acetaminophen (Percocet 325-5 Mg) 1 - 2 tab PO Q6H PRN PRN Reason: Breakthrough Pain Propofol (Diprivan 20 Ml) Confirm Administered Dose 200 mg .ROUTE .STK-MED ONE Stop: 12/06/17 08:39 Propofol (Diprivan 20 Ml) Confirm Administered Dose 200 mg .ROUTE .STK-MED ONE Stop: 12/06/17 11:27 Rocuronium [place] (Zemuron) Confirm Administered Dose 50 mg .ROUTE .STK-MED ONE Stop: 12/06/17 08:39 Sodium Chloride (Saline Flush) 10 ml FLUSH ASDIRECTED PRN PRN Reason: Keep Vein Open Stop: 12/06/17 18:00 Sodium Chloride (Normal Saline) Confirm Administered Dose 50 ml .ROUTE .STK-MED ONE Stop: 12/06/17 08:24 Last Admin: 12/06/17 10:45 Dose: 15 ml *Q Meaningful Use (DIS) - VTE *Q VTE Criteria *Q: - Stroke *Q Stroke Criteria *Q: - AMI *Q AMI Criteria *Q:
== END 2017-12-06 18:20 | disposition home or self-care (01) ==
LOC: JD.MS 07:26 → INTOOBSV 07:26 → JD.SDS 07:26 → UNDOADMOB 07:26 → JD.MS 07:26 → EDSTATUS 08:00 → JD.MS 16:03 → UNDODISOB 18:20 → JD.SDS 18:20
PROVIDERS: ATTEND Obstetrics & Gynecology
DX: N84.1 Polyp of cervix uteri (principal); N83.12 Corpus luteum cyst of left ovary; N83.11 Corpus luteum cyst of right ovary; D25.9 Leiomyoma of uterus, unspecified; N80.0 Endometriosis of uterus; I10 Essential (primary) hypertension; N88.8 Other specified noninflammatory disorders of cervix uteri; Z88.8 Allergy status to other drugs, medicaments and biological substances; Z91.013 Allergy to seafood; Z91.048 Other nonmedicinal substance allergy status; Z79.82 Long term (current) use of aspirin; Z79.899 Other long term (current) drug therapy; Z87.891 Personal history of nicotine dependence
CPT/HCPCS: 36415; 58552; 80051; 84703; 85025; 86850; 86900; 86901; 94640; J0690; J1100; J1170; J1200; J1885; J2250; J2405; J3010; J7050; J7120; J2704

== ENCOUNTER 2018-02-10 08:20 | Observation (INO) | payer BC ==
--- NOTE | 2018-02-06 12:26 | PCM.PREANE ---
Preanesthetic Assessment - Anesthesia/Transfusion/Family Hx Anesthesia History: Prior Anesthesia Without Reaction Family History of Anesthesia Reaction: No Transfusion History: No Prior Transfusion(s) Intubation History: Unknown - Review of Systems General: No Symptoms, Fatigue Pulmonary: No Symptoms (Former smoker: quit 2013) Cardiovascular: No Symptoms (History of HTN), Chest Pain (2 weeks ago which subsided with diaphoresis noted with pain and radiation down right arm.) Gastrointestinal: No Symptoms (GERD), Constipation (History of constipation) Neurological: No Symptoms, Headache (History of headaches), Tingling (right elbow) Other: Reports: Easy Bleeding (thrombocytopenia), Easy Bruising, Thyroid Problems (thyromegaly, multiple thyroid nodules), Sinus Problem (allergic rhinitis), Anxiety - Physical Assessment NPO Status Date: 02/09/18 NPO Status Time: 21:00 Pulse: 65 O2 Sat by Pulse Oximetry: 95 Respiratory Rate: 20 Blood Pressure: 154/88 Temperature: 35.8 C Height: 1.68 m Weight: 101 kg ASA Class: 2 Mental Status: Alert & Oriented x3 Airway Class: Mallampati = 2 Dentition: Reports: Normal Dentition, Caries Thyro-Mental Finger Breadths: 3 Mouth Opening Finger Breadths: 3 ROM/Head Extension: Full Lungs: Clear to Auscultation, Normal Respiratory Effort Cardiovascular: Regular Rate, Regular Rhythm, No Murmurs - Lab Values: Lab values reviewed and noted and within acceptable ranges to proceed with scheduled procedure. - Imaging/EKG Impressions: EKG:SR rate= 68, first degree AV block, QT interval minimally prolonged, non specific new Qwave AVL. - Allergies Allergies/Adverse Reactions: Allergies Allergy/AdvReac Type Severity Reaction Status Date / Time chlorthalidone Allergy Cannot Verified 02/07/18 10:34 Remember fish derived Allergy Anaphylactic Verified 02/07/18 10:34 Shock grass pollen Allergy Cannot Verified 02/07/18 10:34 Remember Iodine and Iodide Containing Allergy Anaphylactic Verified 02/07/18 10:34 Produc Shock mold Allergy Cannot Verified 02/07/18 10:34 Remember povidone-iodine Allergy Airway Verified 02/07/18 10:34 [From Betadine] Tightness shellfish derived Allergy Anaphylactic Verified 02/07/18 10:34 Shock soap [From Betadine] Allergy Airway Verified 02/07/18 10:34 Tightness dust Allergy Cannot Uncoded 02/07/18 10:34 Remember - Anesthesia Plan Pre-Op Medication Ordered: Beta Bib Beta Bib: Metoprolol Med Last Dose Date: 02/10/18 Med Last Dose Time: 05:00 - Acknowledgements Anesthesia Type Planned: General Anesthesia Pt an Appropriate Candidate for the Planned Anesthesia: Yes Alternatives and Risks of Anesthesia Discussed w Pt/Guardian: Yes Pt/Guardian Understands and Agrees with Anesthesia Plan: Yes PreAnesthesia Questionnaire - Past Health History Medical/Surgical History: Denies Medical/Surgical History HEENT History: Reports: Allergic Rhinitis Cardiovascular History: Reports: Hypertension Respiratory History: Reports: None Gastrointestinal History: Reports: Chronic Constipation Genitourinary History: Reports: None FLAG MAKER History: Reports: , Other (See Below) Other OB/BYN History: abnormal perimenopausal bleeding, irregular menses, menorrhagia, Musculoskeletal History: Reports: None Neurological History: Reports: Headaches, Chronic Psychiatric History: Reports: Anxiety, Other (See Below) Other Psychiatric History: fatigue Endocrine/Metabolic History: Reports: Other (See Below) Other Endocrine/Metabolic History: multiple thyroid nodules, thyromegaly Hematologic History: Reports: Other (See Below) Other Hematologic History: thromobcytopenia, hyperkalemia Immunologic History: Reports: None Oncologic (Cancer) History: Reports: None Dermatologic History: Reports: Other (See Below) Other Dermatologic History: contact dermatitis - Past Surgical History Head Surgeries/Procedures: Reports: None Cardiovascular Surgical History: Reports: None Respiratory Surgical History: Reports: None GI Surgical History: Reports: Colonoscopy Female Surgical History: Reports: None Male Surgical History: Reports: None Endocrine Surgical History: Reports: Thyroid Biopsy Musculoskeletal Surgical History: Reports: None Oncologic Surgical History: Reports: None - SUBSTANCE USE Smoking Status *Q: Former Smoker Tobacco Use Within Last Twelve Months: No Second Hand Smoke Exposure: No Days Per Week of Alcohol Use: 1 Number of Drinks Per Day: 1 Total Drinks Per Week: 1 Recreational Drug Use History: No - HOME MEDS Home Medications: Home Meds Aspirin [Ecotrin] 81 mg PO DAILY 12/05/17 [History] Coconut Oil 1,000 mg PO DAILY 12/05/17 [History] Dandelion Root 1 cap PO DAILY 12/05/17 [History] Fluticasone Propionate [Flonase Allergy Relief] 1 spray NASBOTH DAILY 12/05/17 [ History] Lactobacillus Acidophilus [Probiotic] 1 cap PO DAILY 12/05/17 [History] Losartan [Cozaar] 100 mg PO DAILY 12/05/17 [History] Multivitamin [Daily Fer] 1 tab PO DAILY 12/05/17 [History] Polyethylene Glycol 3350 [MiraLAX] 1 dose PO DAILY 12/05/17 [History] amLODIPine Besylate [Amlodipine Besylate] 5 mg PO DAILY 12/05/17 [History] oxyCODONE HCl/Acetaminophen [Percocet 5-325 mg Tablet] 1 each PO Q6H #25 tablet 12/06/17 [Rx] Metoprolol Tartrate 100 mg PO BID 02/07/18 [History] - CURRENT (IN HOUSE) MEDS Current Meds: Current Medications Lactated Ringer's (Ringers, Lactated) 1,000 mls @ 125 mls/hr IV ASDIRECTED PERICO Lidocaine/Sodium Bicarbonate (Buffered Lidocaine 1% In Ns 8.4%) 0.25 ml IDERM ONETIME PRN PRN Reason: Prior to IV Start Sodium Chloride (Saline Flush) 10 ml FLUSH ASDIRECTED PRN PRN Reason: Keep Vein Open
[~2018-02-10 08:20] MED LIST changes: +Dexamethasone 4 MG/ML 5 ML MDV ONE; +Ketorolac 30 MG/ML SDV ONE; -Lactated Ringers 1,000 ML IV SCH; +Lactated Ringers 1,000 ML ONE; +Lidocaine 1% 6 ML ONE; +Midazolam 1 MG/ML 2 ML SDV ONE; +Ondansetron 4 MG/2 ML SDV ONE; +Propofol 200 MG/20 ML SDV ONE; +Rocuronium 50 MG/5 ML Vial ONE; +ceFAZolin 1 GM Vial ONE; +fentaNYL 250 MCG/5 ML SDV ONE
[2018-02-10] MEDS: Lactated Ringers 1,000 ML IV SCH ×2 (08:55→19:51)
[2018-02-10] MEDS ORDERED: ePHEDrine 50 MG/ML SDV ONE (09:17)
[2018-02-10] MEDS ORDERED: Lidocaine 0.5% 50 ML SDV ONE (09:48)
[2018-02-10] MEDS: Bupivacaine 0.5%/EPINEPHrine 1:200,000 50 ML MDV ONE ×2 (09:57→10:46)
[2018-02-10] MEDS: Lidocaine 1% with EPINEPHrine 1:100,000 20 ML MDV ONE ×2 (09:57→10:47)
[2018-02-10] MEDS ORDERED: Rocuronium 50 MG/5 ML Vial ONE (10:05)
[2018-02-10] MEDS ORDERED: Haloperidol Lactate 5 MG/ML SDV IVPUSH PRN (10:20)
[2018-02-10] MEDS ORDERED: ePHEDrine 50 MG/ML SDV IVPUSH PRN (10:20)
[2018-02-10] MEDS ORDERED: Midazolam 1 MG/ML 2 ML SDV IVPUSH PRN (10:20)
[2018-02-10] MEDS ORDERED: Ondansetron 4 MG/2 ML SDV IVPUSH PRN (10:20)
[2018-02-10] MEDS ORDERED: HYDROmorphone 0.5 MG/0.5 ML Syringe IVPUSH PRN (10:20)
[2018-02-10] MEDS ORDERED: Metoclopramide 10 MG/2 ML SDV IV PRN (10:20)
[2018-02-10] MEDS ORDERED: fentaNYL 100 MCG/2 ML SDV IVPUSH PRN (10:20)
[2018-02-10] MEDS ORDERED: Neostigmine Methylsulfate 1 MG/ML 5 ML Syringe ONE (10:25)
[2018-02-10] MEDS ORDERED: Phenylephrine 1 MG in Sodium Chloride 0.9% 10 ML IV SCH (10:30)
[2018-02-10] MEDS ORDERED: HYDROmorphone 0.5 MG/0.5 ML Syringe ONE ×2 (10:52→12:14)
[2018-02-10] MEDS ORDERED: Lactated Ringers 1,000 ML ONE (11:49)
--- NOTE | 2018-02-10 12:54 | PCM.POSTAN ---
POST ANESTHESIA ASSESSMENT - MENTAL STATUS Mental Status: Alert - VITAL SIGNS Pulse Rate: 84 SaO2: 91 (3LPM nasal cannula) Resp Rate: 12 Blood Pressure: 152/92 Temperature: 36.6 C - RESPIRATORY Respiratory Status: Respiratory Rate WNL, Airway Patent, O2 Saturation Stable, Supplemental Oxygen - CARDIOVASCULAR CV Status: Pulse Rate WNL, Blood Pressure Stable - GASTROINTESTINAL GI Status: No Symptoms - POST OP HYDRATION Hydration Status: Adequate & Stable
[2018-02-10] MEDS ORDERED: Acetaminophen/HYDROcodone 325-5 MG Tab PO PRN (13:25)
[2018-02-10] MEDS ORDERED: Albuterol 0.083% 2.5 MG/3 ML Neb Soln NEB ONE (13:32)
--- NOTE | 2018-02-10 13:55 | PCM48HPAN ---
Post Anesthesia Note - EVALUATION WITHIN 48HRS OF ANESTHETIC Vital Signs in Normal Range: Yes Patient Participated in Evaluation: Yes Respiratory Function Stable: Yes Airway Patent: Yes Cardiovascular Function Stable: Yes Hydration Status Stable: Yes Pain Control Satisfactory: Yes Nausea and Vomiting Control Satisfactory: Yes Mental Status Recovered: Yes
[2018-02-10] MEDS: Acetaminophen/oxyCODONE 325-5 MG Tab PO PRN ×2 (14:26→20:23)
[2018-02-10] MEDS ORDERED: Pneumococcal Polyvalent-23 Vaccine 0.5 ML SDV IM ONE (14:41)
[2018-02-10] MEDS: METOPROLOL TARTRATE 100 MG PO SCH (20:23)
[2018-02-11] MEDS: Acetaminophen/oxyCODONE 325-5 MG Tab PO PRN ×2 (02:27→08:26)
[2018-02-11] MEDS: Benzocaine/Cetylpyridinium/Menthol Lozenge MUCMEM PRN ×2 (02:40→08:20)
--- NOTE | 2018-02-11 07:32 | PCM.SURGPN ---
- General Info Date of Service: 02/11/18 POD#: 1 Functional Status: Reports: Pain Controlled, Tolerating Diet, Ambulating, Urinating - Review of Systems HEENT: Reports: Other (Complains of a sore and dry throat.) - Patient Data Vitals - Most Recent: Last Vital Signs Temp 37 C 02/11/18 03:09 Pulse 66 02/11/18 03:07 Resp 16 02/11/18 03:07 BP 137/77 02/11/18 03:07 Pulse Ox 93 L 02/11/18 03:07 Weight - Most Recent: 103.147 kg I&O - Last 24 Hours: Intake & Output 02/10/18 02/11/18 02/11/18 22:59 06:59 14:59 Intake Total 1280 1712 Output Total 500 1800 Balance 780 -88 Med Orders - Current: Current Medications Amlodipine Besylate (Norvasc) 5 mg PO DAILY [facility] Benzocaine/Menthol (Cepacol Sore Throat) 1 lozenge MUCMEM Q2HR PRN PRN Reason: Sore Throat Last Admin: 02/11/18 02:40 Dose: 1 lozenge Losartan Potassium (Cozaar) 100 mg PO DAILY [facility] Last Admin: 02/10/18 14:26 Dose: 100 mg Metoprolol Tartrate (Lopressor) 100 mg PO BID [facility] Last Admin: 02/10/18 20:23 Dose: 100 mg Oxycodone/Acetaminophen (Percocet 325-5 Mg) 1 tab PO Q6H PRN PRN Reason: Pain (severe 7-10) Last Admin: 02/11/18 02:27 Dose: 1 tab Fluticasone Propionate [Flonase Allergy Relief] 1 Chancellor) 0 each NASBOTH DAILY [facility] Polyethylene Glycol (Miralax) 17 gm PO DAILY [facility] Discontinued Medications Hydrocodone Bitart/Acetaminophen (Jack 325-5 Mg) 1 tab PO Q4H PRN PRN Reason: Pain (moderate 4-6) Stop: 02/10/18 18:00 Last Admin: 02/10/18 16:22 Dose: 1 tab Albuterol (Proventil Neb Soln) 2.5 mg NEB ONETIME ONE Stop: 02/10/18 13:33 Last Admin: 02/10/18 13:43 Dose: 2.5 mg Bupivacaine HCl/Epinephrine Bitart (Marcaine 0.5%/Epinephrine 1:200,000) Confirm Administered Dose 50 ml .ROUTE .STK-MED ONE Stop: 02/10/18 08:38 Last Admin: 02/10/18 09:57 Dose: 1 ml Cefazolin Sodium (Ancef) Confirm Administered Dose 2 gm .ROUTE .STK-MED ONE Stop: 02/10/18 07:17 Dexamethasone (Dexamethasone) Confirm Administered Dose 20 mg .ROUTE .STK-MED ONE Stop: 02/10/18 07:17 Ephedrine Sulfate (Ephedrine Sulfate) Confirm Administered Dose 50 mg .ROUTE .STK-MED ONE Stop: 02/10/18 09:18 Ephedrine Sulfate (Ephedrine Sulfate) 5 mg IVPUSH ASDIRECTED PRN PRN Reason: Hypotension Stop: 02/10/18 18:00 Fentanyl (Sublimaze) Confirm Administered Dose 250 mcg .ROUTE .STK-MED ONE Stop: 02/10/18 07:18 Fentanyl (Sublimaze) 50 mcg IVPUSH Q5M PRN PRN Reason: Pain Stop: 02/10/18 18:00 Last Admin: 02/10/18 13:18 Dose: 50 mcg Glycopyrrolate () Confirm Administered Dose 1 mg .ROUTE .STK-MED ONE Stop: 02/10/18 10:26 Haloperidol Lactate (Haldol) 1 mg IVPUSH ONETIME PRN PRN Reason: PERSISTENT NAUSEA Stop: 02/10/18 18:00 Hydromorphone HCl (Dilaudid) 0.5 mg IVPUSH ONETIME PRN PRN Reason: Pain Stop: 02/10/18 18:00 Hydromorphone HCl (Dilaudid) Confirm Administered Dose 0.5 mg .ROUTE .STK-MED ONE Stop: 02/10/18 10:53 Hydromorphone HCl (Dilaudid) Confirm Administered Dose 0.5 mg .ROUTE .STK-MED ONE Stop: 02/10/18 12:15 Lactated Ringer's (Ringers, Lactated) 1,000 mls @ 125 mls/hr IV ASDIRECTED PERICO Stop: 02/10/18 23:00 Last Admin: 02/10/18 19:51 Dose: 125 mls/hr Lidocaine HCl (Xylocaine-Mpf 1%) Confirm Administered Dose 6 mls @ as directed .ROUTE .STK-MED ONE Stop: 02/10/18 07:17 Lactated Ringer's (Ringers, Lactated) Confirm Administered Dose 1,000 mls @ as directed .ROUTE .ST-MED ONE Stop: 02/10/18 07:17 Phenylephrine HCl 1 mg/ Sodium (Chloride) 10.1 mls @ 1 mls/sec IV TITRATE PERICO; Protocol Stop: 02/10/18 18:00 Lactated Ringer's (Ringers, Lactated) Confirm Administered Dose 1,000 mls @ as directed .ROUTE .ST-MED ONE Stop: 02/10/18 11:50 Ketorolac Tromethamine (Toradol) Confirm Administered Dose 30 mg .ROUTE .ST- MED ONE Stop: 02/10/18 07:17 Lidocaine HCl (Xylocaine-Mpf 0.5%) Confirm Administered Dose 50 ml .ROUTE .STK- MED ONE Stop: 02/10/18 09:49 Lidocaine/Epinephrine (Xylocaine 1% With Epinephrine 1:100,000) Confirm Administered Dose 20 ml .ROUTE .[facility]-MED ONE Stop: 02/10/18 08:37 Last Admin: 02/10/18 09:57 Dose: 1 ml Lidocaine/Sodium Bicarbonate (Buffered Lidocaine 1% In Ns 8.4%) 0.25 ml IDERM ONETIME PRN PRN Reason: Prior to IV Start Stop: 02/10/18 18:00 Last Admin: 02/10/18 08:54 Dose: 0.25 ml Metoclopramide HCl (Reglan) 10 mg IV ONETIME PRN PRN Reason: Nausea/Vomiting Stop: 02/10/18 18:00 Midazolam HCl (Versed 1 Mg/Ml) Confirm Administered Dose 2 mg .ROUTE .ST-MED ONE Stop: 02/10/18 07:17 Midazolam HCl (Versed 1 Mg/Ml) 2 mg IVPUSH ONETIME PRN PRN Reason: Sedation Stop: 02/10/18 18:00 Neostigmine Methylsulfate (Neostigmine) Confirm Administered Dose 5 mg .ROUTE .STK-MED ONE Stop: 02/10/18 10:26 Ondansetron HCl (Zofran) Confirm Administered Dose 4 mg .ROUTE .STK-MED ONE Stop: 02/10/18 07:17 Ondansetron HCl (Zofran) 4 mg IVPUSH ONETIME PRN PRN Reason: Nausea/Vomiting Stop: 02/10/18 18:00 Pneumococcal Polyvalent Vaccine (Pneumovax 23) 0.5 ml IM .ONCE ONE Stop: 02/10/18 14:42 Propofol (Diprivan 20 Ml) Confirm Administered Dose 200 mg .ROUTE .STK-MED ONE Stop: 02/10/18 07:17 Rocuronium Dinosaur (Zemuron) Confirm Administered Dose 50 mg .ROUTE .STK-MED ONE Stop: 02/10/18 07:17 Rocuronium Dinosaur (Zemuron) Confirm Administered Dose 50 mg .ROUTE .STK-MED ONE Stop: 02/10/18 10:06 Sodium Chloride (Saline Flush) 10 ml FLUSH ASDIRECTED PRN PRN Reason: Keep Vein Open Stop: 02/10/18 18:00 - Exam Wound/Incisions: Dressing Dry and Intact, No Drainage HEENT: Other (No swelling or ecchymosis) - Problem List & Annotations (1) Multiple thyroid nodules SNOMED Code(s): 560467416 Code(s): E04.2 - NONTOXIC MULTINODULAR GOITER Status: Resolved Priority: Medium Current Visit: Yes - Problem List Review Problem List Initiated/Reviewed/Updated: Yes - My Orders Last 24 Hours: Active Orders 24 hr Category Date Time Status Patient Status [ADT] Routine ADT 02/10/18 13:25 Active Head of Bed Elevation [RC] 09,21 Care 02/10/18 13:27 Active Insert Urinary Catheter [OM.PC] Q24H Care 02/10/18 09:40 Ordered Ready for Discharge [RC] PER UNIT ROUTINE Care 02/11/18 07:30 Ordered Vital Signs [RC] Q4HR Care 02/10/18 13:25 Active Full Liquid Diet [DIET] Diet 02/10/18 Dinner Active Acetaminophen/oxyCODONE [Percocet 325-5 MG] Med 02/10/18 13:30 Active 1 tab PO Q6H PRN Benzocaine/Cetylpyrd/Menthol [Cepacol Sore Throat] Med 02/11/18 02:31 Active 1 lozenge MUCMEM Q2HR PRN Losartan [Cozaar] Med 02/10/18 13:30 Active 100 mg PO DAILY Metoprolol Tartrate [Lopressor] Med 02/10/18 21:00 Active 100 mg PO BID Patient's Own Medication [Ptom] Med 02/11/18 09:00 Active 0 each NASBOTH DAILY Polyethylene Glycol 3350 [MiraLAX] Med 02/11/18 09:00 Active 17 gm PO DAILY amLODIPine [Norvasc] Med 02/11/18 09:00 Active 5 mg PO DAILY Peripheral IV Discontinue [OM.PC] Routine Oth 02/10/18 13:25 Ordered Resuscitation Status Routine Resus Stat 02/10/18 13:25 Ordered Medication Orders Amlodipine Besylate (Norvasc) 5 mg PO DAILY [facility] Benzocaine/Menthol (Cepacol Sore Throat) 1 lozenge MUCMEM Q2HR PRN PRN Reason: Sore Throat Last Admin: 02/11/18 02:40 Dose: 1 lozenge Losartan Potassium (Cozaar) 100 mg PO DAILY [facility] Last Admin: 02/10/18 14:26 Dose: 100 mg Metoprolol Tartrate (Lopressor) 100 mg PO BID [facility] Last Admin: 02/10/18 20:23 Dose: 100 mg Oxycodone/Acetaminophen (Percocet 325-5 Mg) 1 tab PO Q6H PRN PRN Reason: Pain (severe 7-10) Last Admin: 02/11/18 02:27 Dose: 1 tab Admin: 02/10/18 20:23 Dose: 1 tab Admin: 02/10/18 14:26 Dose: 1 tab Fluticasone Propionate [Flonase Allergy Relief] 1 Chancellor) 0 each NASBOTH DAILY [facility] Polyethylene Glycol (Miralax) 17 gm PO DAILY [facility] - Assessment Assessment (Free Text/Narrative):: Doing well. Ready for discharge. - Plan Plan (Free Text/Narrative):: Discharge today and follow-up in one week. Post procedure instructions were given verbally to the patient.
--- NOTE | 2018-02-11 07:43 | PCM.OPNOTE ---
- General Post-Op/Procedure Note Date of Surgery/Procedure: 02/10/18 Operative Procedure(s): Left thyroid lobectomy with isthmusectomy Findings: 2 cm in diameter nodule within the thyroid isthmus and a 2 cm nodule in the left inferior thyroid pole. Pre Op Diagnosis: Multiple thyroid nodules with an FNA remarkable for a follicular lesion. Post-Op Diagnosis: Same, with benign nodule seen after frozen section Anesthesia Technique: General ET Tube, Local Primary Surgeon: Binh Coughlin Pathology: Left thyroid lobe and isthmus EBL in mLs: 10 Complications: None Condition: Good Free Text/Narrative:: Intake & Output 02/10/18 02/11/18 02/11/18 22:59 06:59 14:59 Intake Total 1280 1712 Output Total 500 1800 Balance 780 -88 After adequate general endotracheal tube anesthesia the patient was positioned with her neck in extension and a support between the scapula. The neck was then prepped and the field was draped sterilely for a thyroidectomy. After local analgesia was given in a skin crease about 2 fingerbreadths above the clavicular heads an incision was made with a 15 blade to reach the platysma. Hemostasis was obtained with cautery. I elevated the platysma superiorly to the thyroid cartilage and inferiorly to the suprasternal notch and laterally to beyond the lateral margins of both sternocleidomastoids. The midline was identified and I the sternal hyoid and sternal thyroid. Retractors were placed. The left middle vein was divided with clips. The thyroid was mobilized from its bed to identify the inferior thyroid pedicle. The inferior thyroid artery was identified which led to the recurrent laryngeal nerve which was observed. The inferior parathyroid was away from the inferior pole of the gland with hemoclips. I then controlled the superior aspect of the lobe with clips the superior parathyroid from the gland as well. The thyroid was mobilized to the midline along with the isthmus sharply. Clips were placed around the small branches near the area of the current laryngeal nerve as it entered the thyroid cartilage. A TA-30 stapler was fired across the isthmus of the right lobe. The specimen was sent to pathology and frozen section interpretation was remarkable for benign nodules. I irrigated out the bed of the left thyroid lobe with saline. Spot hemostasis was obtained with cautery. I closed the midline strap muscles with interrupted 3-0 Vicryl. The platysma was closed with interrupted 3-0 Vicryl capturing the subcutaneous fat and I simply closed the skin with Steri-Strips. Gauze and tape were used for the dressing. There were no known complications.
[2018-02-11] MEDS: METOPROLOL TARTRATE 100 MG PO SCH (08:24)
[2018-02-11 08:25] VITALS: BP 143/73
[2018-02-11] MEDS ORDERED: AMLODIPINE 5 MG PO SCH (09:00)
[2018-02-11] MEDS ORDERED: [UNRECOGNIZED DRUG - REMARK] NASBOTH SCH (09:00)
[2018-02-11] MEDS ORDERED: Polyethylene Glycol 3350 Powder 17 GM Packet PO SCH (09:00)
== END 2018-02-11 10:19 | disposition home or self-care (01) ==
LOC: JD.SDS 08:20 → JD.MS 13:25
PROVIDERS: ADMIT Surgery; ATTEND Surgery
DX: E04.2 Nontoxic multinodular goiter (principal); I10 Essential (primary) hypertension; Z88.8 Allergy status to other drugs, medicaments and biological substances; Z91.013 Allergy to seafood; Z91.09 Other allergy status, other than to drugs and biological substances; J30.2 Other seasonal allergic rhinitis; Z79.82 Long term (current) use of aspirin; Z79.899 Other long term (current) drug therapy; Z87.891 Personal history of nicotine dependence
CPT/HCPCS: 60220; 88307; 90732; 93005; 94640; A9270; G0009; J0690; J1100; J1170; J2250; J2405; J3010; J7120; G0378; J1885; J2704; J2710